=== PATIENT | male | born 1985 | race African-American/Black ===

== ENCOUNTER 2019-01-28 18:39 | Emergency (ER) | payer BC, OTHER ==
[2019-01-28] MEDS ORDERED: MAG HYDROX/AL HYDROX/SIMETH SUSP 30 ML UDCUP PO ONE (19:37)
[2019-01-28] MEDS ORDERED: NORMAL SALINE 1000 ML 1,000 ML IV ONE (19:37)
[2019-01-28] MEDS ORDERED: LIDOCAINE 2% VISCOUS SOLN 20 ML UDCUP PO ONE (19:37)
[2019-01-28] MEDS ORDERED: ONDANSETRON HCL INJ/PF 4 MG/2 ML SDV IV ONE (19:37)
--- NOTE | 2019-01-28 19:39 | ER Document Report ---
ED Medical Screen (RME) - General Chief Complaint: Nausea/Vomiting Stated Complaint: VOMITING Time Seen by Provider: 01/28/19 19:34 Mode of Arrival: Ambulatory Information source: Patient Notes: Patient presents complaining of nausea and vomiting that started yesterday. Patient reports vomiting over 10 times today. Patient reports epigastric pain and right upper quadrant pain. Patient states that pain does radiate up into the chest although he feels that this is due to the vomiting. Patient denies any fever or cough. Patient denies any significant medical history I have greeted and performed a rapid initial assessment of this patient. A comprehensive ED assessment and evaluation of the patient, analysis of test results and completion of the medical decision making process will be conducted by additional ED providers. TRAVEL OUTSIDE OF THE [place] IN LAST 30 DAYS: No - Related Data Allergies/Adverse Reactions: No Known Allergies Allergy (Verified 11/27/12 00:10) Past Medical History - Social History Frequency of alcohol use: None Drug Abuse: Marijuana - Past Medical History Cardiac Medical History: Denies: Hx Coronary Artery Disease, Hx Heart Attack, Hx Hypertension Pulmonary Medical History: Denies: Hx Asthma Endocrine Medical History: Denies: Hx Diabetes Mellitus Type 1, Hx Diabetes Mellitus Type 2 GI Medical History: Reports: Hx Gastroesophageal Reflux Disease Musculoskeltal Medical History: Reports Hx Musculoskeletal Trauma Traumatic Medical History: Reports: Hx Fractures Past Surgical History: Reports: Hx Orthopedic Surgery - rt knee - Immunizations Immunizations up to date: Yes Hx Diphtheria, Pertussis, Tetanus Vaccination: Yes Physical Exam - Vital signs Vitals: Temp Pulse Resp BP Pulse Ox 98.6 F 70 15 113/66 98 01/28/19 19:06 01/28/19 19:06 01/28/19 19:06 01/28/19 19:06 01/28/19 19:06 - Abdominal Tenderness: Tender - Epigastric, right upper quadrant Course - Vital Signs Vital signs: Temp Pulse Resp BP Pulse Ox 98.6 F 70 15 113/66 98 01/28/19 19:33 01/28/19 19:06 01/28/19 19:33 01/28/19 19:06 01/28/19 19:33
[2019-01-28 20:15] LABS: ABSOLUTE EOSINOPHILS # (AUTO) 0.2 10^3/uL (0.0-0.6); ABSOLUTE LYMPHOCYTES (AUTO) 2.5 10^3/uL (0.5-4.7); ABSOLUTE MONOCYTES (AUTO) 0.7 10^3/uL (0.1-1.4); BASOPHILS % (AUTO) 0.5 % (0-2); EOSINOPHILS % (AUTO) 2.7 % (0-6); HEMATOCRIT 41.6 % (37.9-51.0); HEMOGLOBIN 14.4 g/dL (13.5-17.0); LYMPHOCYTES % (AUTO) 39.2 % (13-45); MEAN CORPUSCULAR HGB CONC 34.7 g/dL (32.0-36.0); MEAN CORPUSCULAR VOLUME 92 fl (80-97); MONOCYTES % (AUTO) 10.3 % (3-13); PLATELET COUNT 254 10^3/uL (150-450); RED BLOOD COUNT 4.51 10^6/uL (4.35-5.55); RED CELL DISTRIBUTION WIDTH 12.6 % (11.5-14.0); SEGMENTED NEUTROPHILS % (AUTO) 47.3 % (42-78); TOTAL CELLS COUNTED % (AUTO) 100 %; WHITE BLOOD COUNT 6.4 10^3/uL (4.0-10.5)
[2019-01-28 20:32] LABS: ALBUMIN 4.5 g/dL (3.5-5.0); ALKALINE PHOSPHATASE 65 U/L (38-126); ANION GAP 8 (5-19); ASPARTATE AMINO TRANSFERASE 43 U/L (17-59); BILIRUBIN,DIRECT 0.1 mg/dL (0.0-0.4); BILIRUBIN,TOTAL 0.8 mg/dL (0.2-1.3); BLOOD UREA NITROGEN 14 mg/dL (7-20); CALCIUM 9.8 mg/dL (8.4-10.2); CARBON DIOXIDE 30 mmol/L (22-30); CHLORIDE 104 mmol/L (98-107); GLUCOSE 90 mg/dL (75-110); POTASSIUM 4.1 mmol/L (3.6-5.0); TOTAL PROTEIN 7.4 g/dL (6.3-8.2)
--- NOTE | 2019-01-28 20:51 | RADIOLOGY REPORT (SQ) ---
EXAM DESCRIPTION: US ABDOMEN LIMITED COMPLETED DATE/TME: 01/28/2019 19:36 CLINICAL HISTORY: 33 years, Male, RUQ pain COMPARISON: None. TECHNIQUE: LIMITATIONS: None. FINDINGS: The liver is somewhat hyperechogenic, compatible with fatty infiltration. No gallstones. No evidence of gallbladder wall thickening or pericholecystic fluid. The cath lab technologist reported a negative sonographic Rao sign. No evidence of biliary tree dilatation. The right kidney is unremarkable. The pancreatic head is unremarkable. The pancreatic body and tail were obscured by bowel gas. IMPRESSION: Fatty liver. copyright 2010 [employer]- All Rights Reserved
--- NOTE | 2019-01-28 21:53 | EKG REPORT ---
SEVERITY:- NORMAL ECG - SINUS RHYTHM : Confirmed by: Meet Gonzales MD 28-Jan-2019 21:52:38
[2019-01-29] MEDS ORDERED: FAMOTIDINE 20 MG TABLET PO ONE (00:06)
[2019-01-29] MEDS ORDERED: ONDANSETRON 4 MG TAB.RAPDIS PO ONE (00:06)
[2019-01-29 01:10] VITALS: BP 117/69
== END 2019-01-29 01:10 | disposition home or self-care (01) ==
LOC: ER 18:39
DX: R11.2 Nausea with vomiting, unspecified (principal); R10.13 Epigastric pain; R10.11 Right upper quadrant pain
CPT/HCPCS: 93005; 99284; 36415; 83690; 85025; 80053; 76705; 93010; S0119

== ENCOUNTER 2019-07-29 18:47 | Emergency (ER) | payer OTHER, BC ==
[2019-07-29 19:08] VITALS: BP 117/65
[2019-07-29] MEDS ORDERED: KETOROLAC TROMETHAMINE 60 MG/2 ML SDV IM ONE (20:17)
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
== END 2019-07-29 20:37 | disposition home or self-care (01) ==
LOC: ER 18:47
DX: S16.1XXA Strain of muscle, fascia and tendon at neck level, initial encounter (principal); M25.511 Pain in right shoulder; M54.2 Cervicalgia; R51 Headache; V87.7XXA Person injured in collision between other specified motor vehicles (traffic), initial encounter
CPT/HCPCS: 99283; 96372; J1885